=== PATIENT | female | born 1995 | race African-American/Black ===

== ENCOUNTER 2017-03-31 01:09 | Emergency (ER) | payer SELFPAY ==
[~2017-03-31] VITALS: Ht 165.1 cm; Wt 93.9 kg
[2017-03-31 01:14] VITALS: BP 138/82
[2017-03-31 01:45] LABS: BILIRUBIN,URINE NEGATIVE (NEG); GLUCOSE,URINE NEGATIVE (NEG); NITRITE,URINE NEGATIVE (NEG); PH,URINE 5.5; PROTEIN,URINE NEGATIVE (NEG-TRACE); UROBILINOGEN,URINE 0.2 mg/dL (0.2 mg/dL)
[2017-03-31 01:55] LABS: BACTERIA,URINE FEW /HPF (0-FEW); SQUAMOUS EPITHELIAL CELL,UR OCC /LPF
--- NOTE | 2017-03-31 02:51 | PHYS DOC ---
Past Medical History Past Medical History: No Pertinent History Past Surgical History: Other Additional Past Surgical Histo: right knee Alcohol Use: None Drug Use: None Adult General Chief Complaint Chief Complaint: VAGINAL PROBLEM HPI HPI Is a pleasant 21-year-old female with a history of vaginal swelling and discharge over last day. Patient is a last month's period was 2 weeks prior to evaluation today presents with a vaginal discharge described as whitish cottage cheese like when she took several baths using bubble bath. She denies any fever, new sexual partners, although she is sexually active she demonstrated exposed to an STD before patient denies back pain, UTI symptoms like dysuria urgency or frequency. Patient denies any vaginal bleeding or vaginal trauma. She also denies any rashes, new medications, or other symptoms of abdominal pain nausea vomiting or diarrhea. Review of Systems Review of Systems Constitutional: Denies fever or chills [] Eyes: Denies change in visual acuity, redness, or eye pain [] HENT: Denies nasal congestion or sore throat [] Respiratory: Denies cough or shortness of breath [] Cardiovascular: No additional information not addressed in HPI [] GI: Denies abdominal pain, nausea, vomiting, bloody stools or diarrhea [] : Denies dysuria or hematuria [] Musculoskeletal: Denies back pain or joint pain [] Integument: Denies rash or skin lesions [] Neurologic: Denies headache, focal weakness or sensory changes [] Current Medications Current Medications Current Medications Medications (Trade) Dose Ordered Sig/Fidencio Start Time Stop Time Status Last Admin Dose Admin Azithromycin (Zithromax) 1,000 mg 1X ONCE 03/31/17 02:45 03/31/17 02:46 UNV Ceftriaxone Sodium (Rocephin Im) 250 mg 1X ONCE 03/31/17 02:45 03/31/17 02:46 UNV Allergies Allergies Allergies Coded Allergies Type Severity Reaction Last Updated Verified shellfish derived Allergy Unknown 03/31/17 Yes Physical Exam Physical Exam Constitutional: Well developed, well nourished, no acute distress, non-toxic appearance. [] Cardiovascular:Heart rate regular rhythm, no murmur [] Lungs & Thorax: Bilateral breath sounds clear to auscultation [] Abdomen: Bowel sounds normal, soft, no tenderness, no masses, no pulsatile masses. Female exam demonstrates some swelling to the labia majora minora bilaterally with no obvious signs of rash or trauma there is some thin whitish discharge consistent with a yEast infection but there is also thick purulent discharge from the cervical os although this is no CMT or adnexal fullness or tenderness is also not all malodorous. [] Skin: Warm, dry, no erythema, no rash. [] Back: No tenderness, no CVA tenderness. [] Extremities: No tenderness, no cyanosis, no clubbing, ROM intact, no edema. [] Neurologic: Alert and oriented X 3, normal motor function, normal sensory function, no focal deficits noted. [] Psychologic: Affect normal, judgement normal, mood normal. [] Current Patient Data Vital Signs Vital Signs Date Time Temp Pulse Resp B/P (MAP) Pulse Ox O2 Delivery O2 Flow Rate FiO2 03/31/17 01:14 98.4 69 16 138/82 (100) 96 Room Air 98.4 Lab Values Laboratory Tests Test 03/31/17 00:37 03/31/17 01:30 POC Urine HCG, Qualitative Hcg negative (Negative) Urine Collection Type Unknown Urine Color Yellow Urine Clarity Clear Urine pH 5.5 Urine Specific [place] 1.025 Urine Protein Negative mg/dL (NEG-TRACE) Urine Glucose (UA) Negative mg/dL (NEG) Urine Ketones (Stick) Negative mg/dL (NEG) Urine Blood Negative (NEG) Urine Nitrite Negative (NEG) Urine Bilirubin Negative (NEG) Urine Urobilinogen Dipstick 0.2 mg/dL (0.2 mg/dL) Urine Leukocyte Esterase Negative (NEG) Urine RBC 3-5 /HPF (0-2) Urine WBC 1-4 /HPF (0-4) Urine Squamous Epithelial Cells Occ /LPF Urine Bacteria Few /HPF (0-FEW) Urine Mucus Marked /LPF EKG EKG [] Radiology/Procedures Radiology/Procedures [] Course & Med Decision Making Course & Med Decision Making Pertinent Labs and Imaging studies reviewed. (See chart for details) and reviewed vital signs and nursing notes and physical exam findings which are concerning for possible cervicitis. Patient was empirically treated with Rocephin and azithromycin and given Diflucan has not patient. Patient will have evaluation completed for GC and at a wet prep looking for Trichomonas and bacterial vaginosis. [] Impression: Cervicitis, yeast infection plan is treatment with azithromycin and Rocephin here in the emergency department and Diflucan has not patient. Patient will be also given some Benadryl for itching and soft tissue swelling. Disposition: PCP follow-up in 12-24 hours for repeat evaluation to ensure that her cultures are followed up. Carolin Disclaimer Carolin Disclaimer This electronic medical record was generated, in whole or in part, using a voice recognition dictation system. Departure Departure Impression: Primary Impression: Yeast infection involving the vagina and surrounding area Additional Impression: Cervicitis Disposition: HOME, SELF-CARE Condition: IMPROVED Referrals: NO PCP (PCP) Patient Instructions: Candidal Vulvovaginitis, [id number] Additional Instructions: These return for any new or increasing discharge despite treatment or if you any fevers, back pain, rash on your vaginal area or legs or given any questions or concerns. I would advise a follow-up [facility] primary care doctor to receive the results of your test to ensure they were not missing some other infection that may require further treatment. Scripts Diphenhydramine Hcl (BENADRYL) 25 Mg Capsule 1 CAP PO QHS, #30 CAP 1 Refill Prov: JC KELLER MD 03/31/17 Fluconazole (DIFLUCAN) 150 Mg Tablet 1 TAB PO ONCE, #1 TAB 1 Refill Prov: JC KELLER MD 03/31/17 Problem Qualifiers JC KELLER MD Mar 31, 2017 02:51
[2017-03-31] MEDS ORDERED: DIPH25CA58 PO (03:04)
[2017-03-31] MEDS ORDERED: FLUC150T PO (03:04)
[2017-03-31] MEDS ORDERED: cefTRIAXone IM 250 MG VIAL IM ONE (03:15)
[2017-03-31] MEDS ORDERED: AZITHROMYCIN 250 MG TABLET. PO ONE (03:15)
== END 2017-03-31 03:19 | disposition home or self-care (01) ==
LOC: ER 01:09
DX: B37.3 Candidiasis of vulva and vagina (principal); N72 Inflammatory disease of cervix uteri; Z91.013 Allergy to seafood
CPT/HCPCS: 81001; 81025; 87491; 87591; 96372; 99284; J0696; Q0111; Q0144

== ENCOUNTER 2017-07-19 08:31 | Emergency (ER) | payer SELFPAY ==
[~2017-07-19] VITALS: Ht 165.1 cm; Wt 89.8 kg
[~2017-07-19 08:31] MED LIST: DIPH25CA58 PO; FLUC150T PO
--- NOTE | 2017-07-19 08:48 | PHYS DOC ---
Past Medical History Past Medical History: Asthma Past Surgical History: Other Additional Past Surgical Histo: right LEG Alcohol Use: Occasionally Drug Use: None Adult General Chief Complaint Chief Complaint: SORE THROAT HPI HPI Patient is a 21 year old female who presents with sore throat since yesterday. Patient denies any fever coughing or congestion. Review of Systems Review of Systems Constitutional: see hPI Eyes: Denies change in visual acuity, redness, or eye pain [] HENT: sore throat. Denies nasal congestion Respiratory: see HPI Cardiovascular: No additional information not addressed in HPI [] GI: Denies abdominal pain, nausea, vomiting, bloody stools or diarrhea [] : Denies dysuria or hematuria [] Musculoskeletal: Denies back pain or joint pain [] Integument: Denies rash or skin lesions [] Neurologic: Denies headache, focal weakness or sensory changes [] Allergies Allergies Allergies Coded Allergies Type Severity Reaction Last Updated Verified shellfish derived Allergy Unknown 03/31/17 Yes Physical Exam Physical Exam Constitutional: Well developed, well nourished, no acute distress, non-toxic appearance. [] HENT: Normocephalic, atraumatic, bilateral external ears normal, oropharynx moist, no oral exudates, nose normal. [] Eyes: PERRLA, EOMI, conjunctiva normal, no discharge. [] Neck: Normal range of motion, no tenderness, supple, no stridor. [] Cardiovascular:Heart rate regular rhythm, no murmur [] Lungs & Thorax: Bilateral breath sounds clear to auscultation [] Abdomen: Bowel sounds normal, soft, no tenderness, no masses, no pulsatile masses. [] Skin: Warm, dry, no erythema, no rash. [] Back: No tenderness, no CVA tenderness. [] Extremities: No tenderness, no cyanosis, no clubbing, ROM intact, no edema. [] Neurologic: Alert and oriented X 3, normal motor function, normal sensory function, no focal deficits noted. [] Psychologic: Affect normal, judgement normal, mood normal. [] Current Patient Data Vital Signs Vital Signs Date Time Temp Pulse Resp B/P (MAP) Pulse Ox O2 Delivery O2 Flow Rate FiO2 07/19/17 08:57 98.3 69 16 100 Room Air 98.3 Lab Values Laboratory Tests Test 07/19/17 08:52 Group A Streptococcus Rapid Negative (NEGATIVE) EKG EKG [] Radiology/Procedures Radiology/Procedures [] Course & Med Decision Making Course & Med Decision Making Pertinent Labs and Imaging studies reviewed. (See chart for details) This is a 21-year-old female patient presenting to the ED today with sore throat for 1 day. Negative rapid strep. Symptoms are likely viral. Saltwater gargles recommended. Tylenol Motrin for pain or fever. Follow-up with primary care doctor in one week. Carolin Disclaimer Carolin Disclaimer This electronic medical record was generated, in whole or in part, using a voice recognition dictation system. Departure Departure Impression: Primary Impression: Acute viral pharyngitis Disposition: HOME, SELF-CARE Condition: STABLE Referrals: NO PCP (PCP) follow up with your doctor in one week Patient Instructions: Viral Pharyngitis Additional Instructions: You were seen for a viral sore throat. Use saltwater gargles as needed. Take Tylenol or Motrin for pain or fever. Follow-up with your doctor in one week. LYNDA JIMENEZ APRN Jul 19, 2017 08:48
[2017-07-19 08:57] VITALS: BP 136/85
[2017-07-19 09:30] LABS: NEGATIVE OBC STREP NEG; POSITIVE OBC STREP POS
== END 2017-07-19 09:19 | disposition home or self-care (01) ==
LOC: ER 08:31
DX: J02.8 Acute pharyngitis due to other specified organisms (principal); B97.89 Other viral agents as the cause of diseases classified elsewhere; J45.909 Unspecified asthma, uncomplicated; Z91.013 Allergy to seafood
CPT/HCPCS: 87070; 87880; 99283

== ENCOUNTER 2018-07-17 12:56 | Emergency (ER) | payer SELFPAY ==
[~2018-07-17] VITALS: Ht 165.1 cm; Wt 102.1 kg
[2018-07-17 13:25] VITALS: BP 129/73
--- NOTE | 2018-07-17 13:46 | PHYS DOC ---
Past Medical History Past Medical History: Asthma Past Surgical History: Other Additional Past Surgical Histo: right LEG Alcohol Use: Rarely Drug Use: None Adult General Chief Complaint Chief Complaint: PAIN ON URINATION HPI HPI Patient is a 22 year old female presents to the ED complaining of dysuria 2 days ago. Patient states he started to have burning when she urinates approximately 2 days ago. Describes the pain as sharp. Rates the pain as 6 out of 10. Denies vaginal discharge/bleeding, STD exposure, abdominal pain, chest pain, shortness of breath, dizziness, weakness, headache, fever, chills, flank pain, or hematuria. Review of Systems Review of Systems Constitutional: Denies fever or chills [] Respiratory: Denies cough or shortness of breath [] Cardiovascular: No additional information not addressed in HPI [] GI: Denies abdominal pain, nausea, vomiting, bloody stools or diarrhea [] : Complains of dysuria. Denies hematuria [] Musculoskeletal: Denies back pain or joint pain [] Integument: Denies rash or skin lesions [] Neurologic: Denies headache, focal weakness or sensory changes [] All other systems were reviewed and found to be within normal limits, except as documented in this note. Current Medications Current Medications Current Medications Medications (Trade) Dose Ordered Sig/Fidencio Start Time Stop Time Status Last Admin Dose Admin Azithromycin (Zithromax) 1,000 mg 1X ONCE 07/17/18 14:30 07/17/18 14:31 DC 07/17/18 14:48 1,000 MG Ceftriaxone Sodium (Rocephin Im) 250 mg 1X ONCE 07/17/18 14:30 07/17/18 14:31 DC 07/17/18 14:49 250 MG Metronidazole (Flagyl) 2,000 mg 1X ONCE 07/17/18 14:30 07/17/18 14:31 DC 07/17/18 14:48 2,000 MG Allergies Allergies Allergies Coded Allergies Type Severity Reaction Last Updated Verified shellfish derived Allergy Unknown 03/31/17 Yes Physical Exam Physical Exam Constitutional: Well developed, well nourished, no acute distress, non-toxic appearance. [] HENT: Normocephalic, atraumatic Cardiovascular:Heart rate regular rhythm, no murmur [] Lungs & Thorax: Bilateral breath sounds clear to auscultation [] Abdomen: Bowel sounds normal, soft, no tenderness, no masses, no pulsatile masses. [] : Refused. Skin: Warm, dry, no erythema, no rash. [] Back: No tenderness, no CVA tenderness. [] Extremities: No tenderness, no cyanosis, no clubbing, ROM intact, no edema. [] Neurologic: Alert and oriented X 3, normal motor function, normal sensory function, no focal deficits noted. [] Psychologic: Affect normal, judgement normal, mood normal. [] Current Patient Data Vital Signs Vital Signs Date Time Temp Pulse Resp B/P (MAP) Pulse Ox O2 Delivery O2 Flow Rate FiO2 07/17/18 13:25 98.7 70 14 129/73 (91) 98 Room Air 98.7 Lab Values Laboratory Tests Test 07/17/18 13:28 07/17/18 13:41 Urine Collection Type Unknown Urine Color Yellow Urine Clarity Clear Urine pH 7.0 Urine Specific [place] 1.015 Urine Protein Negative mg/dL (NEG-TRACE) Urine Glucose (UA) Negative mg/dL (NEG) Urine Ketones (Stick) Negative mg/dL (NEG) Urine Blood Negative (NEG) Urine Nitrite Negative (NEG) Urine Bilirubin Negative (NEG) Urine Urobilinogen Dipstick 1.0 mg/dL (0.2 mg/dL) Urine Leukocyte Esterase Small (NEG) Urine RBC 0 /HPF (0-2) Urine WBC Occ /HPF (0-4) Urine Squamous Epithelial Cells Mod /LPF Urine Bacteria Few /HPF (0-FEW) POC Urine HCG, Qualitative Hcg negative (Negative) EKG EKG [] Radiology/Procedures Radiology/Procedures [] Course & Med Decision Making Course & Med Decision Making Pertinent Labs and Imaging studies reviewed. (See chart for details) []Patient refused exam. Will treat with rocephin, azithromycin, and flagyl in the ED. GC culture pending. Discussed symptomatic treatment outpatient. Discussed follow-up with PCP this week. Discussed reason to return to the ED. Patient understands and agrees with plan. Staff Physician Addendum: I was working in the ER during the course of this patient's visit. I was available for consultation as needed, but I was not directly involved in the care of this patient. Dragon Disclaimer Dragon Disclaimer This electronic medical record was generated, in whole or in part, using a voice recognition dictation system. Departure Departure Impression: Primary Impression: UTI (urinary tract infection) Disposition: HOME, SELF-CARE Condition: IMPROVED Referrals: NO PCP (PCP) JACOB ANGEL MD Patient Instructions: Urinary Tract Infection Scripts Cephalexin (CEPHALEXIN) 500 Mg Tablet 1 TAB PO TID for 7 Days, #21 TAB Prov: MARIO FARIAS 07/17/18 MARIO FARIAS Jul 17, 2018 13:46 BRIELLE GOLDSTEIN MD Jul 17, 2018 16:57
[2018-07-17 13:48] LABS: BILIRUBIN,URINE NEGATIVE (NEG); CLARITY,URINE CLEAR; COLOR,URINE YELLOW; NITRITE,URINE NEGATIVE (NEG); PROTEIN,URINE NEGATIVE (NEG-TRACE)
[2018-07-17 14:11] LABS: BACTERIA,URINE FEW /HPF (0-FEW); RBC,URINE 0 /HPF (0-2); SQUAMOUS EPITHELIAL CELL,UR MOD /LPF; WBC,URINE OCC /HPF (0-4)
[2018-07-17] MEDS ORDERED: CEPH500T PO (14:19)
[2018-07-17] MEDS ORDERED: cefTRIAXone IM 250 MG VIAL IM ONE (14:30)
[2018-07-17] MEDS ORDERED: AZITHROMYCIN 250 MG TABLET. PO ONE (14:30)
[2018-07-17] MEDS ORDERED: metroNIDAZOLE 500 MG TABLET PO ONE (14:30)
== END 2018-07-17 15:05 | disposition home or self-care (01) ==
LOC: ER 12:56
DX: N39.0 Urinary tract infection, site not specified (principal); J45.909 Unspecified asthma, uncomplicated; Z91.013 Allergy to seafood
CPT/HCPCS: 81001; 81025; 87491; 87591; 96372; 99284; J0696; Q0144

== ENCOUNTER 2022-01-30 21:14 | Emergency (ER) | payer SELFPAY ==
[~2022-01-30 21:14] MED LIST changes: +CEPH500T PO
== END 2022-01-30 21:37 | disposition left against medical advice (07) ==
LOC: ER 21:14
DX: S89.90XA Unspecified injury of unspecified lower leg, initial encounter (principal); Z53.21 Procedure and treatment not carried out due to patient leaving prior to being seen by health care provider; X58.XXXA Exposure to other specified factors, initial encounter; Y93.89 Activity, other specified; Y92.89 Other specified places as the place of occurrence of the external cause; Y99.8 Other external cause status